=== PATIENT | female | born 1975 | race Caucasian/White ===

== ENCOUNTER 2016-09-21 05:58 | Outpatient (CLI) | payer OTHER | END 2016-09-21 05:59 | disposition critical access hospital (66) | DX: M79.605 Pain in left leg (principal) | CPT/HCPCS: A0425; A0427 ==

== ENCOUNTER 2016-09-21 06:23 | Emergency (ER) | payer OTHER ==
[2016-09-21] MEDS ORDERED: CYCLOBENZAPRINE 10 MG TABLET PO STA (06:55)
[2016-09-21] MEDS ORDERED: CYCLOBENZAPRINE 10 MG TABLET PO ONE (07:09)
[2016-09-21] MEDS ORDERED: SODIUM CHLORIDE 0.9% 1,000 ML IV ONE (07:20)
[2016-09-21] MEDS ORDERED: DEXAMETHASONE 10 MG/ML VIAL IVP STA (07:20)
[2016-09-21] MEDS ORDERED: KETOROLAC 60 MG/2 ML VIAL IVP STA (07:20)
[2016-09-21] MEDS ORDERED: DEXAMETHASONE 10 MG/ML VIAL ONE (07:21)
[2016-09-21] MEDS ORDERED: KETOROLAC 30 MG/ML VIAL ONE (07:21)
== END 2016-09-21 10:29 | disposition home or self-care (01) ==
DX: E86.0 Dehydration (principal); M54.32 Sciatica, left side; E03.9 Hypothyroidism, unspecified; Z79.891 Long term (current) use of opiate analgesic; Z79.899 Other long term (current) drug therapy
CPT/HCPCS: 81003; 81025; 96361; 96374; 96375; 99284; A9270

== ENCOUNTER 2021-01-04 08:00 | Outpatient (CLI) | payer OTHER | END 2021-01-04 23:59 | disposition home or self-care (01) | LOC: LAB.N 08:00 | PROVIDERS: ATTEND Nurse Practitioner | DX: R07.0 Pain in throat (principal); Z20.822 Contact with and (suspected) exposure to COVID-19 | CPT/HCPCS: 87070 ==

== ENCOUNTER 2021-09-03 14:55 | Outpatient (CLI) | payer OTHER ==
--- NOTE | 2021-09-03 18:05 | Ultrasound Report ---
PROCEDURE: Head or Neck Soft Tissue INDICATIONS: DIFFICULTY SWALLOWING, HYPOTHYROIDISM TECHNIQUE: Real time scanning was performed of the neck region of interest, with image documentation . COMPARISON: None. FINDINGS: Right: Thyroid lobe measures 3.9 x 1 x 1.4 cm, and is homogenous in echotexture. Left: Thyroid lobe measures 3.3 x 0.7 x 1.1 cm, and is homogenous in echotexture. Isthmus: 0.3 cm Nodule number: 1 Location: Right inferior Size: 3.2 x 2.6 x 3.3 mm Composition: Solid Echogenicity: Hypoechoic Shape: Wider than tall. Margins: Irregular Echogenic foci: None Total points: 4 ACR TI-RADS category: Moderately suspicious; however, does not meet size criteria for follow-up. IMPRESSION: 1. Subcentimeter right thyroid nodule as detailed above. Sum of all points to determine TI-RADS level. ACR TI-RADS definitions and recommendations: TI-RADS 1 (benign): 0 points. FNA not needed. TI-RADS 2 (not suspicious): 2 points. FNA not needed. TI-RADS 3 (mildly suspicious): 3 points. --FNA if 2.5 cm or larger, follow-up if 1.5 cm or larger (at 1, 3, and 5 years). TI-RADS 4 (moderately suspicious): 4-6 points. --FNA if 1.5 cm or larger, follow up if 1 cm or larger (at 1, 2, 3, and 5 years). TI-RADS 5 (highly suspicious): 7 points or more. --FNA if 1 cm or larger, follow-up is 0.5 cm or larger (every year for 5 years). Reviewed by: Maxime Olivier MD on 09/03/2021 6:04 PM PDT Approved by: Maxime Olivier MD on 09/03/2021 6:04 PM PDT Station ID: [id number]
== END 2021-09-03 14:56 | disposition home or self-care (01) ==
LOC: DI 14:55
PROVIDERS: ATTEND Registered Nurse
DX: E04.1 Nontoxic single thyroid nodule (principal); R13.10 Dysphagia, unspecified; E03.9 Hypothyroidism, unspecified

== ENCOUNTER 2021-11-04 15:00 | Outpatient (CLI) | payer OTHER | END 2021-11-04 15:01 | disposition home or self-care (01) | LOC: MAC.INF 15:00 | PROVIDERS: ATTEND Physician Assistant | DX: R00.2 Palpitations (principal) | CPT/HCPCS: 93246; 93248 ==

== ENCOUNTER 2021-11-27 10:00 | Outpatient (CLI) | payer OTHER | END 2021-11-27 10:01 | disposition home or self-care (01) | LOC: MAC.MOP 10:00 | PROVIDERS: ATTEND Physician Assistant | DX: I47.1 Supraventricular tachycardia (principal); I47.2 Ventricular tachycardia; I49.1 Atrial premature depolarization; I49.3 Ventricular premature depolarization | CPT/HCPCS: 93248 ==

== ENCOUNTER 2022-01-29 09:22 | Outpatient (CLI) | payer OTHER ==
[2022-01-29 19:08] LABS: BASOPHILS % (AUTO) 0.6 %; EOSINOPHILS # (AUTO) 0.2 10^3/uL (0.0-0.7); EOSINOPHILS % (AUTO) 2.9 %; HCT - HEMATOCRIT 41.5 % (37.0-47.0); HGB - HEMOGLOBIN 13.6 g/dL (12.0-16.0); LYMPHOCYTES # (AUTO) 1.4 10^3/uL (1.5-3.5); LYMPHOCYTES % (AUTO) 27.7 %; MEAN CORPUSCULAR HEMOGLOBIN 30.8 pg (27.0-31.0); MEAN CORPUSCULAR HGB CONC 32.8 g/dL (32.0-36.0); MEAN CORPUSCULAR VOLUME 93.9 fL (81.0-99.0); MEAN PLATELET VOLUME 9.5 fL (7.9-10.8); MONOCYTES # (AUTO) 0.4 10^3/uL (0.0-1.0); NEUTROPHILS # (AUTO) 3.1 10^3/uL (1.5-6.6); NEUTROPHILS % (AUTO) 60.6 %; PLT - PLATELET COUNT 260 10^3/uL (130-450); RED BLOOD COUNT 4.42 10^6/uL (4.20-5.40); RED CELL DISTRIBUTION WIDTH 11.4 % (12.0-15.0); WHITE BLOOD COUNT 5.1 x10^3/uL (4.8-10.8)
[2022-01-29 19:18] LABS: ALBUMIN 4.2 g/dL (3.2-5.5); CALCIUM 9.6 mg/dL (8.5-10.3); CREATININE 0.6 mg/dL (0.4-1.0); POTASSIUM 4.1 mmol/L (3.5-5.0)
[2022-01-29 19:39] LABS: THYROID STIMULATING HORMONE 0.16 uIU/mL (0.34-5.60)
[2022-01-29 19:40] LABS: FREE T4 (FREE THYROXINE) 1.32 ng/dL (0.58-1.64)
[2022-01-29 19:45] LABS: FERRITIN 54.5 ng/mL (11.0-306.8)
[2022-01-29 19:51] LABS: ALBUMIN/GLOBULIN RATIO 1.3 (1.0-2.2); BILIRUBIN,TOTAL 1.4 mg/dL (0.2-1.0); PHOSPHORUS 3.5 mg/dL (2.5-4.6); TOTAL PROTEIN 7.5 g/dL (6.7-8.2)
[2022-02-01 14:08] LABS: VITAMIN D 25-HYDROXY 64.5 ng/mL (30.0-100.0)
== END 2022-01-29 09:23 | disposition home or self-care (01) ==
LOC: LAB.N 09:22
PROVIDERS: ATTEND Physician Assistant
DX: Z98.84 Bariatric surgery status (principal)
CPT/HCPCS: 36415; 80053; 82306; 82607; 82728; 82746; 83540; 83970; 84100; 84207; 84425; 84439; 84443; 84466; 85025

== ENCOUNTER 2023-02-13 07:51 | Outpatient (CLI) | payer OTHER ==
[2023-02-13 12:33] LABS: BASOPHILS % (AUTO) 0.3 %; EOSINOPHILS # (AUTO) 0.1 10^3/uL (0.0-0.7); EOSINOPHILS % (AUTO) 1.6 %; HCT - HEMATOCRIT 40.6 % (37.0-47.0); HGB - HEMOGLOBIN 13.2 g/dL (12.0-16.0); LYMPHOCYTES # (AUTO) 1.6 10^3/uL (1.5-3.5); LYMPHOCYTES % (AUTO) 25.3 %; MEAN CORPUSCULAR HEMOGLOBIN 30.3 pg (27.0-31.0); MEAN CORPUSCULAR HGB CONC 32.5 g/dL (32.0-36.0); MEAN CORPUSCULAR VOLUME 93.3 fL (81.0-99.0); MONOCYTES # (AUTO) 0.5 10^3/uL (0.0-1.0); MONOCYTES % (AUTO) 7.5 %; PLT - PLATELET COUNT 322 10^3/uL (130-450); RED BLOOD COUNT 4.35 10^6/uL (4.20-5.40); RED CELL DISTRIBUTION WIDTH 11.8 % (12.0-15.0); WHITE BLOOD COUNT 6.2 x10^3/uL (4.8-10.8)
[2023-02-13 12:55] LABS: ALBUMIN 4.2 g/dL (3.2-5.5); ALBUMIN/GLOBULIN RATIO 1.3 (1.0-2.2); ALKALINE PHOSPHATASE 78 IU/L (42-121); ALT ALANINE AMINOTRANSFERASE 25 IU/L (10-60); AST ASPARTATE AMINOTRANSFERASE 23 IU/L (10-42); BILIRUBIN,TOTAL 0.7 mg/dL (0.2-1.0); BUN - BLOOD UREA NITROGEN 12 mg/dL (6-20); CALCIUM 9.6 mg/dL (8.5-10.3); CARBON DIOXIDE - CO2 29 mmol/L (21-32); CHLORIDE 106 mmol/L (101-111); CHOL/HDL RATIO 5.1 (<4.4); CHOLESTEROL 202 mg/dL; CREATININE 0.6 mg/dL (0.6-1.3); GFR - MDRD 108 (>89); GLUCOSE 102 mg/dL (74-104); HDL CHOLESTEROL 40 mg/dL; LDL CHOLESTEROL,CALCULATED 126 mg/dL; LDL/HDL RATIO 3.2 (<4.4); POTASSIUM 4.3 mmol/L (3.5-4.5); SODIUM 140 mmol/L (135-145); TOTAL PROTEIN 7.5 g/dL (6.4-8.9); TRIGLYCERIDES 179 mg/dL (48-352); VLDL CHOLESTEROL 36 mg/dL
[2023-02-13 13:04] LABS: THYROID STIMULATING HORMONE 2.24 uIU/mL (0.34-5.60)
== END 2023-02-13 07:52 | disposition home or self-care (01) ==
LOC: LAB.N 07:51
PROVIDERS: ATTEND Physician Assistant
DX: E03.9 Hypothyroidism, unspecified (principal); Z13.220 Encounter for screening for lipoid disorders
CPT/HCPCS: 36415; 80053; 80061; 83721; 84439; 84443; 85025

== ENCOUNTER 2023-05-01 08:00 | Outpatient (CLI) | payer OTHER ==
--- NOTE | 2023-05-01 17:02 | XRAY Report ---
PROCEDURE: Ankle 3 View RT INDICATIONS: RIGHT ANKLE PAIN TECHNIQUE: 3 views of the ankle were acquired. COMPARISON: None. FINDINGS: Bones: No fractures or dislocations. Ankle mortise is normally aligned and intact. No suspicious b adriana lesions. Plantar and retrocalcaneal enthesophytes. Soft tissues: No tibiotalar joint effusion. Achilles tendon appears normal. IMPRESSION: No acute bony abnormality. Plantar and retrocalcaneal enthesophytes. Reviewed by: Altagracia Alicia MD on 05/01/2023 5:01 PM PST Approved by: Altagracia Alicia MD on 05/01/2023 5:01 PM PST Station ID: [id number]
== END 2023-05-01 23:59 | disposition home or self-care (01) ==
LOC: DI.WOS 08:00
PROVIDERS: ATTEND Physician Assistant Surgical
DX: M77.51 Other enthesopathy of right foot and ankle (principal)

== ENCOUNTER 2023-08-28 08:51 | Day surgery (SDC) | payer OTHER ==
[2023-08-28] MEDS: LACTATED RINGERS 1,000 ML IV ONE ×2 (08:55→11:11)
--- NOTE | 2023-08-28 10:28 | ANESTHESIA ---
Pre-Anesthesia VS, & Labs - Diagnosis SCREENING - Procedure COLONOSCOPY Height: 5 ft 3 in Weight (kg): 103.5 kg Body Mass Index: 40.4 BMI Classification: Morbidly Obese - NPO Last Fluid Intake: 0600 SIP H20 Last Food Intake: >8HR - Is Patient ?: No (HAD A TUBAL 10 YEARS AGO, NOT ACTIVE, BELIEVES POST MENOPAUSAL) Home Medications and Allergies Home Medications: Ambulatory Orders Loratadine [Claritin] 10 mg PO DAILY 08/25/23 Levothyroxine [Synthroid] 112 mcg PO DAILY 09/21/16 Loratadine [Claritin] 10 mg PO DAILY 08/25/23 Allergies/Adverse Reactions: Allergies Allergy/AdvReac Type Severity Reaction Status Date / Time cat dander AdvReac Respiratory Verified 08/25/23 14:17 pollen extracts AdvReac Respiratory Verified 08/25/23 14:16 Anes History & Medical History - Anesthetic History Anesthesia Complications: reports: Post-Operative Nausea/Vomiting Family history of Anesthesia Complications: Denies - Medical History Cardiovascular: reports: None Pulmonary: reports: None Gastrointestinal: reports: None Urinary: reports: None Musculoskeletal: reports: Chronic back pain Endocrine/Autoimmune: reports: HyPOthyroidism Skin: reports: None Smoking Status: Never smoker Psychosocial: reports: No issues indicated - Surgical History General: reports: Gastric surgery Gynecologic: reports: section Results - EKG Results EKG Comparison: Reviewed EKG Exam General: Alert Mouth Openin Fingerbreadth Neck Mobility: Normal Mallampati classification: II Thyromental Distance: 4-6 cm Plan Anesthesia Type: IV Regional Consent for Procedure(s) Verified and Reviewed: Yes Code Status: Attempt Resuscitation ASA classification: 2-Mild systemic disease Is this case an emergency?: No
[2023-08-28 11:35] VITALS: O2SAT 100
[2023-08-28 11:46] VITALS: BP 110/72
--- NOTE | 2023-08-28 11:46 | ANESTHESIA POST OP EVALUATION ---
Anesthesia Post Eval - Post Anesthesia Eval Vitals: Last Vital Signs Temp 36.4 C L 08/28/23 11:11 Pulse 70 08/28/23 11:41 Resp 18 08/28/23 11:41 BP 110/72 08/28/23 11:41 Pulse Ox 100 08/28/23 11:41 O2 Flow Rate CV Function Including HR & BP: Stable Pain Control: Satisfactory Nausea & Vomiting: Negative Mental Status: Baseline Respiratory Status: Airway Patent Hydration Status: Satisfactory Anesthesia Complications: None
== END 2023-08-28 08:52 | disposition home or self-care (01) ==
LOC: SDS 08:51
PROVIDERS: ATTEND Surgery
DX: Z12.11 Encounter for screening for malignant neoplasm of colon (principal); K64.8 Other hemorrhoids; E66.01 Morbid (severe) obesity due to excess calories; Z68.41 Body mass index [BMI] 40.0-44.9, adult; Z80.0 Family history of malignant neoplasm of digestive organs
CPT/HCPCS: 45378; J7120

== ENCOUNTER 2023-10-26 13:15 | Emergency (ER) | payer OTHER ==
--- NOTE | 2023-10-26 13:29 | ED Physician Documentation ---
PD HPI ABD PAIN - Stated complaint Stated Complaint: ABD PX,BACK PX - Chief complaint Chief Complaint: Abd Pain - History obtained from History obtained from: Patient - Additional information Additional information: 48-year-old female presents with nausea and vomiting as well as upper abdominal pain that radiates into the back. Symptoms have been present for about 3 days. She has not had a fever to her knowledge, denies any diarrhea or constipation, no urinary symptoms. No one else in the household is sick. She denies any new foods or water sources, no international travel, and does not smoke marijuana. She has had some similar symptoms in the past, but typically they go away on their own. She states she does not seem to associate pain with p.o. intake. She does have a history of a gastric sleeve. Review of Systems Constitutional: reports: Reviewed and negative Eyes: reports: Reviewed and negative Ears: reports: Reviewed and negative Nose: reports: Reviewed and negative Throat: reports: Reviewed and negative Cardiac: reports: Reviewed and negative Respiratory: reports: Reviewed and negative GI: reports: Abdominal Pain, Nausea, Vomiting. denies: Constipation, Diarrhea : reports: Reviewed and negative Skin: reports: Reviewed and negative Musculoskeletal: reports: Reviewed and negative PD PAST MEDICAL HISTORY - Past Medical History Past Medical History: No Cardiovascular: None Respiratory: None Endocrine/Autoimmune: HyPOthyroidism GI: None : None HEENT: None Psych: None Musculoskeletal: Chronic back pain Derm: None - Past Surgical History Past Surgical History: Yes General: Gastric surgery /TRANSPORTATION DISPATCHER: section - Present Medications Home Medications: Ambulatory Orders Medication Instructions Recorded Confirmed Levothyroxine [Synthroid] 112 mcg PO DAILY 09/21/16 10/26/23 Loratadine [Claritin] 10 mg PO DAILY 08/25/23 08/28/23 Dicyclomine [Bentyl] 20 mg PO QID #30 cap 10/26/23 Ondansetron Odt [Zofran] 4 mg TL Q6H PRN #10 tablet 10/26/23 - Allergies Allergies/Adverse Reactions: Allergies Allergy/AdvReac Type Severity Reaction Status Date / Time cat dander AdvReac Respiratory Verified 10/26/23 13:22 pollen extracts AdvReac Respiratory Verified 10/26/23 13:22 - Social History Does the pt smoke?: No Smoking Status: Never smoker Does the pt drink ETOH?: Yes Does the pt have substance abuse?: No - Immunizations Immunizations are current?: Yes PD ED PE NORMAL - Vitals Vital signs reviewed: Yes - General General: Alert and oriented X 3, No acute distress, Well developed/nourished - HEENT HEENT: Atraumatic, Moist mucous membranes - Cardiac Cardiac: RRR, No murmur - Respiratory Respiratory: No respiratory distress, Clear bilaterally - Abdomen Abdomen: Normal bowel sounds, Soft, Non distended, No organomegaly, Other (mid epigastric and RUQ ttp) - Back Back: No CVA TTP, No spinal TTP - Derm Derm: Normal color, Warm and dry, No rash - Neuro Neuro: Alert and oriented X 3 Eye Opening: Spontaneous Motor: Obeys Commands Verbal: Oriented GCS Score: 15 Results - Vitals Vitals: Vital Signs - 24 hr 10/26/23 10/26/23 10/26/23 13:17 15:22 16:49 Temperature 36.4 C L Heart Rate 93 65 75 Respiratory 18 16 16 Rate Blood Pressure 131/81 H 125/78 O2 Saturation 99 100 98 Oxygen O2 Source Room air - Labs Labs: Laboratory Tests 10/26/23 10/26/23 10/26/23 13:15 13:34 13:34 WBC 16.1 H RBC 4.56 Hgb 13.9 Hct 41.8 MCV 91.7 MCH 30.5 MCHC 33.3 RDW 11.9 L Plt Count 291 MPV 8.5 Neut # (Auto) 13.7 H Lymph # (Auto) 1.2 L [place] # (Auto) 1.2 H Eos # (Auto) 0.0 Baso # (Auto) 0.0 Absolute Nucleated RBC 0.00 Nucleated RBC % 0.0 Sodium 135 Potassium 3.4 L Chloride 98 L Carbon Dioxide 27 Anion Gap 10.0 BUN 8 Creatinine 0.6 Estimated GFR (MDRD) 108 Glucose 110 H Calcium 9.7 Total Bilirubin 2.5 H AST 23 ALT 28 Alkaline Phosphatase 77 Total Protein 7.7 Albumin 4.5 Globulin 3.2 Albumin/Globulin Ratio 1.4 Lipase < 10 L Urine Color DARK YELLOW Urine Clarity HAZY Urine pH 7.0 Ur Specific [place] 1.020 Urine Protein TRACE Urine Glucose (UA) NEGATIVE Urine Ketones 40 H Urine Occult Blood MODERATE H Urine Nitrite NEGATIVE Urine Bilirubin SMALL H Urine Urobilinogen >=8.0 H Ur Leukocyte Esterase NEGATIVE Urine RBC 0-5 Urine WBC 0-3 Ur Squamous Epith Cells MANY Squamous H Urine Bacteria Many H Urine Mucus Marked Strands Ur Microscopic Review INDICATED Urine Culture Comments NOT INDICATED - Rads (name of study) No standard instances Relevant Findings:: Final report received PD Medical Decision Making - ED course Complexity details: reviewed results, re-evaluated patient, considered differential, d/w patient, d/w marketing sales consultant ED course: 48-year-old female presented with right upper quadrant abdominal pain, nausea and vomiting as described in HPI. The patient is well-appearing here on phy sical exam, nontoxic afebrile, does have mild right upper quadrant tenderness on physical exam. The concern for biliary colic or cholecystitis versus gastritis gastroenteritis, cyclic vomiting, IBS among other differentials. We obtained lab work which shows notable for a white blood cell count of 16,000, otherwise fairly stable, she does not have a urinary tract infection. We proceeded initially with the ultrasound which showed a normal gallbladder, no gallstones therefore obtain a CT abdomen pelvis to evaluate for Other potential causes. There is very slight possible fat stranding has noted above but no obvious signs of acute cholecystitis. She does not have any gallstones, and the common bile duct is within normal. I reviewed these findings with the on-call general surgeon and it was felt this likely was more of a IBS and recommended Bentyl and we will discharge as well with nausea medication. Patient advised that if she had persistent symptoms or if they seem to be more exacerbated by p.o. intake to follow-up here or with general surgery.She was encouraged to stick to a clear liquid diet tonight and then she can advance slowly as tolerated but stick with a fairly bland and easily digestible foods for the next several days. Patient feeling substantially better after IV fluids and medications here and stable for discharge home. Departure - Departure Disposition: 01 Home, Self Care Clinical Impression: Gastroenteritis Condition: Good Instructions: ED Gastroenteritis Non Infec Follow-Up: Kandace Guy MD [Provider Admit Priv/Credential] - Prescriptions: Dicyclomine [Bentyl] 20 mg PO QID #30 cap Ondansetron Odt [Zofran] 4 mg TL Q6H PRN #10 tablet PRN Reason: Nausea / Vomiting Comments: Your symptoms are likely due to a gastroenteritis or possibly some mild underlying irritable bowel syndrome. Your gallbladder appears normal on the CT and ultrasound. If you have recurrent symptoms however consider following up with the GI specialist or general surgery.If you develop a fever and worsening symptoms, please return to the ER. I recommend that you stick with a clear liquid diet today and then advance slowly to easily digestible foods, avoid any high-fat foods. Forms: PCP List Discharge Date/Time: 10/26/23 16:49
[2023-10-26 13:43] LABS: BASOPHILS % (AUTO) 0.2 %; EOSINOPHILS % (AUTO) 0.1 %; HCT - HEMATOCRIT 41.8 % (37.0-47.0); HGB - HEMOGLOBIN 13.9 g/dL (12.0-16.0); LYMPHOCYTES # (AUTO) 1.2 10^3/uL (1.5-3.5); LYMPHOCYTES % (AUTO) 7.2 %; MEAN CORPUSCULAR HEMOGLOBIN 30.5 pg (27.0-31.0); MEAN CORPUSCULAR HGB CONC 33.3 g/dL (32.0-36.0); MEAN CORPUSCULAR VOLUME 91.7 fL (81.0-99.0); MEAN PLATELET VOLUME 8.5 fL (7.9-10.8); MONOCYTES # (AUTO) 1.2 10^3/uL (0.0-1.0); MONOCYTES % (AUTO) 7.1 %; NEUTROPHILS # (AUTO) 13.7 10^3/uL (1.5-6.6); PLT - PLATELET COUNT 291 10^3/uL (130-450); RED BLOOD COUNT 4.56 10^6/uL (4.20-5.40); RED CELL DISTRIBUTION WIDTH 11.9 % (12.0-15.0); WHITE BLOOD COUNT 16.1 x10^3/uL (4.8-10.8)
[2023-10-26 13:45] LABS: BILIRUBIN,URINE SMALL (NEGATIVE); GLUCOSE, URINE (UA) NEGATIVE (NEGATIVE); KETONES,URINE (UA) 40 mg/dL (NEGATIVE); LEUKOCYTE ESTERASE, URINE NEGATIVE (NEGATIVE); NITRITE,URINE NEGATIVE (NEGATIVE); OCCULT BLOOD,URINE MODERATE (NEGATIVE); PROTEIN,URINE TRACE mg/dL (NEGATIVE); UROBILINOGEN,URINE >=8.0 E.U./dL (NORMAL)
[2023-10-26] MEDS: ONDANSETRON 4 MG/2 ML VIAL IVP STA (13:47)
[2023-10-26] MEDS: KETOROLAC 30 MG/ML VIAL IVP STA (13:47)
[2023-10-26 13:59] LABS: BACTERIA,URINE Many /HPF (None Seen); CLARITY,URINE HAZY (CLEAR); RBC,URINE 0-5 /HPF (0-5); SQUAMOUS EPITHELIAL CELL,UR MANY Squamous (<= Few); WBC,URINE 0-3 /HPF (0-5)
[2023-10-26 14:00] LABS: MUCUS,URINE Marked Strands
[2023-10-26 14:04] LABS: ALBUMIN 4.5 g/dL (3.2-5.5); ALBUMIN/GLOBULIN RATIO 1.4 (1.0-2.2); ALKALINE PHOSPHATASE 77 IU/L (42-121); ALT ALANINE AMINOTRANSFERASE 28 IU/L (10-60); AST ASPARTATE AMINOTRANSFERASE 23 IU/L (10-42); BILIRUBIN,TOTAL 2.5 mg/dL (0.2-1.0); BUN - BLOOD UREA NITROGEN 8 mg/dL (6-20); CALCIUM 9.7 mg/dL (8.5-10.3); CARBON DIOXIDE - CO2 27 mmol/L (21-32); CHLORIDE 98 mmol/L (101-111); CREATININE 0.6 mg/dL (0.6-1.3); GFR - MDRD 108 (>89); GLUCOSE 110 mg/dL (74-104); POTASSIUM 3.4 mmol/L (3.5-4.5); SODIUM 135 mmol/L (135-145); TOTAL PROTEIN 7.7 g/dL (6.4-8.9)
[2023-10-26 14:08] LABS: LIPASE < 10 U/L (11-82)
[2023-10-26] MEDS ORDERED: iohexoL-300 100 ML VIAL ONE (14:55)
--- NOTE | 2023-10-26 15:12 | Ultrasound Report ---
PROCEDURE: Abdomen Limited INDICATIONS: RUQ pain, eval gallbladder please TECHNIQUE: Real-time focused scanning was performed of the abdomen, with image documentation. COMPARISONS: None. FINDINGS: Liver: Liver measures 16.9 cm with steatosis. Gallbladder: No gallstones, sludge, wall thickening or pericholecystic edema. Biliary ducts: Intrahepatic bile ducts are non-dilated. Extrahepatic bile duct caliber measures 4.3 mm. Normal is 6-7 mm or less in diameter, or 10 mm or less post-cholecystectomy. Pancreas: Visualized portions of the pancreas are sonographically normal. Right kidney: Normal in size and echotexture. Right kidney measures 12.0 cm long. No hydronephrosis or nephrolithiasis. No solid masses. No complex renal cystic lesions which require follow-up. IVC: Intrahepatic inferior vena cava is patent. Miscellaneous: No free abdominal fluid. IMPRESSION: Unremarkable abdominal ultrasound. Reviewed by: Shell Appiah MD on 10/26/2023 3:10 PM PDT Approved by: Shell Appiah MD on 10/26/2023 3:10 PM PDT Station ID: [id number]
[2023-10-26] MEDS ORDERED: iohexoL-300 100 ML VIAL IVP ONE (15:24)
--- NOTE | 2023-10-26 15:55 | CT Report ---
PROCEDURE: Abdomen/Pelvis W INDICATIONS: RUQ pain, elevated bili/wbc CONTRAST: Omni 300 100ml TECHNIQUE: After the administration of intravenous contrast, a CT scan of the abdomen and pelvis was performed. Images were recorded and evaluated at appropriate window settings. Reformats: coronal and sagittal. F or radiation dose reduction, the following was used: automated exposure control, adjustment of mA and /or kV according to patient size. COMPARISON: Ultrasound abdomen 10/26/2023. FINDINGS: Image quality: Diagnostic. Lower chest: Unremarkable. Liver: No solid mass. Gallbladder: No stones or wall thickening. There is a very slight appearance of pericholecystic stran ding along the inferior aspect of the gallbladder. Biliary tree: No intrahepatic or extrahepatic dilation, accounting for age. Spleen: No splenomegaly. Pancreas: No pancreatic ductal dilation. Adrenals: No adrenal nodule. Kidneys and ureters: No hydronephrosis. No renal cystic lesion which requires follow up. No solid mas s. Stomach, bowel and peritoneum: No gastric or small bowel dilation. No abnormal wall thickening. No pa thologic free fluid. Minimal diverticula without inflammatory change. Lymph nodes: No central or retroperitoneal adenopathy. Vessels: No infrarenal aortic aneurysm. Patent portal vein. PELVIS Reproductive organs: 2.4 cm simple left ovarian cyst. Bladder: No abnormal wall thickening, accounting for underdistention. Pelvic lymph nodes: No pelvic adenopathy by size criteria. Bones: No aggressive osseous abnormality. Other: No significant ventral or inguinal hernia. IMPRESSION: Normal appearance of stranding along the inferior aspect of the gallbladder wall. No focal thickening is identified. No stones. This could represent a very early developing cholecystitis. Adjacent ascen ding colon bowel loops demonstrate no surrounding inflammatory change. Reviewed by: Shell Appiah MD on 10/26/2023 3:54 PM PDT Approved by: Shell Appiah MD on 10/26/2023 3:54 PM PDT Station ID: [id number]
[2023-10-26 16:15] VITALS: BP 125/78
[2023-10-26 16:53] VITALS: O2SAT 98
== END 2023-10-26 16:49 | disposition home or self-care (01) ==
LOC: ED 13:15
DX: K52.9 Noninfective gastroenteritis and colitis, unspecified (principal); E03.9 Hypothyroidism, unspecified; Z79.899 Other long term (current) drug therapy
CPT/HCPCS: 36415; 80053; 81001; 81003; 83690; 85025; 87086; 96374; 99284

== ENCOUNTER 2023-11-04 08:09 | Emergency (ER) | payer OTHER ==
[2023-11-04 08:36] LABS: BILIRUBIN,URINE SMALL (NEGATIVE); GLUCOSE, URINE (UA) NEGATIVE (NEGATIVE); KETONES,URINE (UA) NEGATIVE (NEGATIVE); LEUKOCYTE ESTERASE, URINE NEGATIVE (NEGATIVE); NITRITE,URINE NEGATIVE (NEGATIVE); OCCULT BLOOD,URINE NEGATIVE (NEGATIVE); PROTEIN,URINE NEGATIVE (NEGATIVE); UROBILINOGEN,URINE >=8.0 E.U./dL (NORMAL)
[2023-11-04 08:38] LABS: CLARITY,URINE CLEAR (CLEAR); HCG UR QUAL NEGATIVE
[2023-11-04 09:13] LABS: BASOPHILS # (AUTO) 0.1 10^3/uL (0.0-0.1); BASOPHILS % (AUTO) 1.3 %; EOSINOPHILS # (AUTO) 0.1 10^3/uL (0.0-0.7); EOSINOPHILS % (AUTO) 2.3 %; HCT - HEMATOCRIT 38.8 % (37.0-47.0); HGB - HEMOGLOBIN 12.5 g/dL (12.0-16.0); LYMPHOCYTES # (AUTO) 0.9 10^3/uL (1.5-3.5); LYMPHOCYTES % (AUTO) 15.9 %; MEAN CORPUSCULAR HEMOGLOBIN 30.4 pg (27.0-31.0); MEAN CORPUSCULAR HGB CONC 32.2 g/dL (32.0-36.0); MEAN CORPUSCULAR VOLUME 94.4 fL (81.0-99.0); MEAN PLATELET VOLUME 8.3 fL (7.9-10.8); MONOCYTES # (AUTO) 0.4 10^3/uL (0.0-1.0); MONOCYTES % (AUTO) 7.8 %; NEUTROPHILS % (AUTO) 72.3 %; PLT - PLATELET COUNT 437 10^3/uL (130-450); RED BLOOD COUNT 4.11 10^6/uL (4.20-5.40); RED CELL DISTRIBUTION WIDTH 11.5 % (12.0-15.0); WHITE BLOOD COUNT 5.5 x10^3/uL (4.8-10.8)
[2023-11-04 09:32] LABS: ALBUMIN 3.8 g/dL (3.2-5.5); ALBUMIN/GLOBULIN RATIO 1.4 (1.0-2.2); CALCIUM 10.1 mg/dL (8.5-10.3); CREATININE 0.7 mg/dL (0.6-1.3); TOTAL PROTEIN 6.6 g/dL (6.4-8.9)
[2023-11-04] MEDS: KETOROLAC 30 MG/ML VIAL IVP STA (10:55)
[2023-11-04] MEDS: ONDANSETRON 4 MG/2 ML VIAL IVP STA (10:56)
[2023-11-04] MEDS: SODIUM CHLORIDE 0.9% 1,000 ML IV STA (10:56)
--- NOTE | 2023-11-04 11:24 | Ultrasound Report ---
PROCEDURE: Abdomen Limited INDICATIONS: RUQ pain transaminitis normal bili TECHNIQUE: Real-time focused scanning was performed of the abdomen, with image documentation. COMPARISONS: 10/26/2023. Correlation is also made with CT, 10/26/2023. FINDINGS: Liver: Liver is normal in size and heterogeneous in echotexture. Gallbladder: The gallbladder appears distended, measuring 11.6 x 4.4 x 4.2 cm. Dependently layering s ludge can be seen. No definite shadowing gallstones are seen. The gallbladder wall is thickened at 6 mm. There is a potential trace amount of pericholecystic fluid. The patient is tender during the exam ination. Biliary ducts: Intrahepatic bile ducts are non-dilated. Extrahepatic bile duct caliber measures 6 m m. Normal is 6-7 mm or less in diameter, or 10 mm or less post-cholecystectomy. Pancreas: The pancreas is not well seen. IVC: Intrahepatic inferior vena cava is patent. Miscellaneous: No free abdominal fluid. IMPRESSION: Moderate suspicion for cholecystitis, with layering sludge, a thickened gallbladder wall, and potenti al minimal pericholecystic fluid. Tenderness is elicited during the examination. The gallbladder is e nlarged. No biliary dilatation. Note: Concordant preliminary findings given by the tacker elastic band upon the completion of the examination to Dr. Andino at 10:45 AM on 11/04/2023. Reviewed by: Perez Knowles MD on 11/04/2023 10:22 AM HALLE Approved by: Perez Knowles MD on 11/04/2023 10:22 AM HALLE Station ID: [id number]
--- NOTE | 2023-11-04 12:23 | ED Physician Documentation ---
PD HPI ABD PAIN - Stated complaint Stated Complaint: BACK PX,NAUSEA - Chief complaint Chief Complaint: Abd Pain - History obtained from History obtained from: Patient - History of Present Illness Timing - onset: Enter time (299), Today Timing - duration: Hours Timing - details: Abrupt onset, Still present Quality: Cramping, Sharp, Pain Location: RUQ Radiation: Right flank Improved by: Laying still Worsened by: Moving, Breathing, Position, Palpation Associated symptoms: Nausea Similar symptoms before: Diagnosis (IBS) Recently seen: Emergency Dept - Additional information Additional information: Dora Valdez is a 48-year-old female who has had a gastric sleeve placed about 3 years ago and she has presented to the emergency department 1 week ago with acute abdominal pain radiating to her back. At that time she had ultrasound and CT scan done which did not provide a specific diagnosis. At that time her bilirubin was 2.5 and her transaminases were all normal. She presents today with an onset of pain at 3 AM as well as nausea and pain radiating to her back. She reports to me that she has been having episodes of pain like this for some time and that she has called the surgeons who put in her gastric sleeve they reported to her that the pains that she was having were not likely due to her surgery done 3 years previously. Review of Systems Constitutional: denies: Fever Eyes: denies: Decreased vision Ears: denies: Ear pain Nose: denies: Congestion Throat: denies: Sore throat Cardiac: denies: Chest pain / pressure, Palpitations Respiratory: denies: Dyspnea, Cough GI: reports: Abdominal Pain, Nausea : denies: Dysuria, Frequency Skin: denies: Rash Musculoskeletal: reports: Back pain. 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 - Present Medications Home Medications: Ambulatory Orders Medication Instructions Recorded Confirmed Levothyroxine [Synthroid] 112 mcg PO DAILY 09/21/16 10/26/23 Loratadine [Claritin] 10 mg PO DAILY 08/25/23 08/28/23 Dicyclomine [Bentyl] 20 mg PO QID #30 cap 10/26/23 Ondansetron Odt [Zofran] 4 mg TL Q6H PRN #10 tablet 10/26/23 - Allergies Allergies/Adverse Reactions: Allergies Allergy/AdvReac Type Severity Reaction Status Date / Time cat dander AdvReac Respiratory Verified 11/04/23 08:18 pollen extracts AdvReac Respiratory Verified 11/04/23 08:18 - Social History Does the pt smoke?: No Smoking Status: Never smoker Does the pt drink ETOH?: Yes Does the pt have substance abuse?: No - Immunizations Immunizations are current?: Yes PD ED PE NORMAL - Vitals Vital signs reviewed: Yes (hypertensive ) - General General: Alert and oriented X 3, Well developed/nourished, Other (Uncomfortable 48-year-old female laying in the position and groaning.) - HEENT HEENT: Atraumatic, PERRL, EOMI - Neck Neck: Supple, no meningeal sign, No bony TTP - Cardiac Cardiac: RRR, No murmur - Respiratory Respiratory: No respiratory distress, Clear bilaterally - Abdomen Abdomen: Normal bowel sounds, Soft, Non distended, Other (There is right upper quadrant and epigastric tenderness to palpation. There is arrest of respiration with deep breathing. There does not appear to be pain to bimanual player palpation of the right kidney. There does not appear to be rib pain.) - Back Back: No CVA TTP, No spinal TTP - Derm Derm: Normal color, Warm and dry, No rash - Extremities Extremities: No deformity, No edema - Neuro Neuro: Alert and oriented X 3, pearl peller 2-12 intact, No motor deficit, No sensory deficit, Normal speech Eye Opening: Spontaneous Motor: Obeys Commands Verbal: Oriented GCS Score: 15 - Psych Psych: Normal mood, Normal affect Results - Vitals Vitals: Vital Signs - 24 hr 11/04/23 11/04/23 11/04/23 08:18 11:03 13:57 Temperature 36.7 C 36.5 C Heart Rate 75 88 64 Respiratory 16 20 18 Rate Blood Pressure 136/85 H 140/88 H 120/67 O2 Saturation 100 99 100 Oxygen O2 Source Room air - Labs Labs: Laboratory Tests 11/04/23 11/04/23 11/04/23 08:20 09:09 09:09 WBC 5.5 RBC 4.11 L Hgb 12.5 Hct 38.8 MCV 94.4 MCH 30.4 MCHC 32.2 RDW 11.5 L Plt Count 437 MPV 8.3 Neut # (Auto) 4.0 Lymph # (Auto) 0.9 L [place] # (Auto) 0.4 Eos # (Auto) 0.1 Baso # (Auto) 0.1 Absolute Nucleated RBC 0.00 Nucleated RBC % 0.0 Sodium 139 Potassium 4.0 Chloride 103 Carbon Dioxide 29 Anion Gap 7.0 BUN 8 Creatinine 0.7 Estimated GFR (MDRD) 90 Glucose 110 H Calcium 10.1 Total Bilirubin 1.0 AST 410 H ALT 228 H Alkaline Phosphatase 195 H Total Protein 6.6 Albumin 3.8 Globulin 2.8 Albumin/Globulin Ratio 1.4 Lipase 16 Urine Color YELLOW Urine Clarity CLEAR Urine pH 7.0 Ur Specific [place] 1.025 Urine Protein NEGATIVE Urine Glucose (UA) NEGATIVE Urine Ketones NEGATIVE Urine Occult Blood NEGATIVE Urine Nitrite NEGATIVE Urine Bilirubin SMALL H Urine Urobilinogen >=8.0 H Ur Leukocyte Esterase NEGATIVE Ur Microscopic Review NOT INDICATED Urine Culture Comments NOT INDICATED Urine HCG, Qual NEGATIVE - Rads (name of study) u/s gallbladder Relevant Findings:: Prelim report reviewed (Impression: Moderate suspicion for cholecystitis, with layering sludge, thickening gallbladder wall, and potential minimal pericholecystic fluid. Tenderness is elicited during the examination. The gallbladder is enlarged. No biliary dilation.), EMP independent interpretation of test PD Medical Decision Making - ED course Complexity details: reviewed old records, reviewed results, re-evaluated patient, considered differential, d/w patient Reviewed Lab Results: We reviewed a complete blood count showing a normal white blood cell count normal hemoglobin hematocrit and platelets chemistries showed normal electrolytes normal kidney function a normal bilirubin and abnormal transa minases with an AST of 410 ALT of 228 and alkaline phosphatase of 195 these are all elevated from her prior normal results 1 week ago. Urinalysis is negative for and there are no signs of infection.I interpreted these laboratory studies to indicate a lack of obstruction with a normal bilirubin and irritation to the liver associated with gallbladder disease. ED course: Dora Valdez is a 48-year-old female who has had a gastric sleeve placed and she is now begun to develop gallbladder symptoms over the past 5 to 6 months. She is having symptoms as often as once per week and today she presents to the emergency department with as bad of pain that she has had and ultrasound today demonstrates a hydropic gallbladder and elevation of her transaminases. She is diagnosed with cholecystitis and the surgeon is consulted. Dr. Hartman comes to the emergency department evaluates the patient and recommends discharge to home to follow-up in the surgery clinic. The patient had resolution of her symptoms with the use of saline and Toradol. Departure - Departure Disposition: , Self Care Clinical Impression: Cholecystitis Condition: Stable Instructions: ED Gallbladder Infec Poss, ED Diet Low Fat Follow-Up: Sravani Huston PA-C [Primary Care Provider] - Gahnshyam Hartman MD [Provider Admit Priv/Credential] - Comments: Dora, today it looks like there is a problem with your gallbladder and this is a common complication of gastric sleeve procedures. There is appear to be significant inflammation to the gallbladder and our surgeon has recommended outpatient management with anticipation of surgical removal of the gallbladder. A follow-up with the surgeon is indicated and in the meantime a diet free of fat is imperative. If you develop the symptoms that do not resolve in a short period of time a follow-up to the emergency department is indicated as well. Forms: PCP List
--- NOTE | 2023-11-04 14:57 | CONSULTATION NOTE ---
Referring Provider Consult Date: 11/04/23 Chief Complaint - Chief Complaint Chief Complaint: abdominal pain since last pm. History of Present Illness - History Obtained From Records Reviewed: yes History obtained from: pt Exam Limitations: none - History of Present Illness HPI Comment/Other: intermittent abdominal pain every 1 to few weeks for nearly 6 months. attack of upper abdominal pain last pm after a tuna fish sandwich. feeling better this afternoon. denies nausea at this time. History - Past Medical History Cardiovascular: reports: None Respiratory: reports: None Endocrine/Autoimmune: reports: HyPOthyroidism GI: reports: None : reports: None HEENT: reports: None Psych: reports: None Musculoskeletal: reports: Chronic back pain Derm: reports: None MRSA Hx?: No - Past Surgical History General: reports: Gastric surgery /CLOTH DRIER: reports: section Meds/Allgy - Home Medications Home Medications: Ambulatory Orders Medication Instructions Recorded Confirmed Levothyroxine [Synthroid] 112 mcg PO DAILY 09/21/16 10/26/23 Loratadine [Claritin] 10 mg PO DAILY 08/25/23 08/28/23 Dicyclomine [Bentyl] 20 mg PO QID #30 cap 10/26/23 Ondansetron Odt [Zofran] 4 mg TL Q6H PRN #10 tablet 10/26/23 - Allergies Allergies/Adverse Reactions: Allergies Allergy/AdvReac Type Severity Reaction Status Date / Time cat dander AdvReac Respiratory Verified 11/04/23 08:18 pollen extracts AdvReac Respiratory Verified 11/04/23 08:18 Review of Systems - Other Findings Other Findings: 10 pt ros as above otherwise unremarkable gastric sleeve 3 years ago Exam - Vital Signs Vital Signs: Vital Signs x48h Temp Pulse Resp BP Pulse Ox 11/04/23 13:57 36.5 C 64 18 120/67 100 11/04/23 11:03 88 20 140/88 H 99 11/04/23 08:18 36.7 C 75 16 136/85 H 100 - Physical Exam General Appearance: positive: No acute distress, Alert Eyes Bilateral: positive: PERRL, EOMI ENT: positive: No signs of dehydration Neck: positive: No JVD, Trachea midline Respiratory: positive: No respiratory distress Cardiovascular: positive: Regular rate & rhythm Abdomen: positive: No distention Neurologic/Psychiatric: positive: Oriented x3 Conclusion and Plan - Lab Results Laboratory Results 11/04/23 09:09: Sodium 139, Potassium 4.0, Chloride 103, Carbon Dioxide 29, Anion Gap 7.0, BUN 8, Creatinine 0.7, Estimated GFR (MDRD) 90, Glucose 110 H, Calcium 10.1, Total Bilirubin 1.0, AST 410 H, ALT 228 H, Alkaline Phosphatase 195 H, Total Protein 6.6, Albumin 3.8, Globulin 2.8, Albumin/Globulin Ratio 1.4, Lipase 16 11/04/23 09:09: WBC 5.5, RBC 4.11 L, Hgb 12.5, Hct 38.8, MCV 94.4, MCH 30.4, MCHC 32.2, RDW 11.5 L, Plt Count 437, MPV 8.3, Neut # (Auto) 4.0, Lymph # (Auto) 0.9 L, [place] # (Auto) 0.4, Eos # (Auto) 0.1, Baso # (Auto) 0.1, Absolute Nuc leated RBC 0.00, Nucleated RBC % 0.0 11/04/23 08:20: Urine Color YELLOW, Urine Clarity CLEAR, Urine pH 7.0, Ur Specific [place] 1.025, Urine Protein NEGATIVE, Urine Glucose (UA) NEGATIVE, Urine Ketones NEGATIVE, Urine Occult Blood NEGATIVE, Urine Nitrite NEGATIVE, Urine Bilirubin SMALL H, Urine Urobilinogen >=8.0 H, Ur Leukocyte Esterase NEGATIVE, Ur Microscopic Review NOT INDICATED, Urine Culture Comments NOT INDICATED, Urine HCG, Qual NEGATIVE - Diagnostic Imaging Results Diagnostic Imaging Results: positive: Read independently (small stones and sludge. distended gallbladder) - Diagnosis Diagnosis: choledocholithasis and chronic cholectysitiis. - Consultation Note Consultation Note: she is feeling much improved. her stones are small and should pass. she is a teacher. 2 weeks until school is out. she has a 12 and 13 year old child. her mother is in good health and lives on [address]. if she can tolerate clears and has minimal pain she may go home on a low fat diet and follow up in the surgery office [phone] plan follow up surgery office, repeat lfts and if improved lap annelise after school is out in 2 weeks. if lfts continue to be elevated plan mrcp and if cbd stone plan gi referral for ercp prior to lap annelise. I will have the office call her to make an appt.
[2023-11-04 15:46] VITALS: BP 131/84; O2SAT 99
== END 2023-11-04 15:39 | disposition home or self-care (01) ==
LOC: ED 08:09
DX: K80.44 Calculus of bile duct with chronic cholecystitis without obstruction (principal); E03.9 Hypothyroidism, unspecified; Z79.899 Other long term (current) drug therapy
CPT/HCPCS: 36415; 80053; 81001; 81003; 81025; 83690; 85025; 87086; 96374; 96375; 99284

== ENCOUNTER 2024-02-12 08:03 | Outpatient (CLI) | payer OTHER ==
[2024-02-12 12:42] LABS: BASOPHILS % (AUTO) 0.6 %; EOSINOPHILS # (AUTO) 0.2 10^3/uL (0.0-0.7); EOSINOPHILS % (AUTO) 2.8 %; HCT - HEMATOCRIT 41.3 % (37.0-47.0); HGB - HEMOGLOBIN 13.2 g/dL (12.0-16.0); LYMPHOCYTES # (AUTO) 1.6 10^3/uL (1.5-3.5); LYMPHOCYTES % (AUTO) 29.8 %; MEAN CORPUSCULAR HEMOGLOBIN 30.1 pg (27.0-31.0); MEAN CORPUSCULAR VOLUME 94.1 fL (81.0-99.0); MEAN PLATELET VOLUME 9.4 fL (7.9-10.8); MONOCYTES # (AUTO) 0.5 10^3/uL (0.0-1.0); MONOCYTES % (AUTO) 8.7 %; NEUTROPHILS # (AUTO) 3.2 10^3/uL (1.5-6.6); NEUTROPHILS % (AUTO) 57.9 %; PLT - PLATELET COUNT 280 10^3/uL (130-450); RED BLOOD COUNT 4.39 10^6/uL (4.20-5.40); RED CELL DISTRIBUTION WIDTH 11.9 % (12.0-15.0); WHITE BLOOD COUNT 5.4 x10^3/uL (4.8-10.8)
[2024-02-12 12:50] LABS: ALBUMIN 4.4 g/dL (3.2-5.5); ALBUMIN/GLOBULIN RATIO 1.6 (1.0-2.2); ALKALINE PHOSPHATASE 75 IU/L (42-121); ALT ALANINE AMINOTRANSFERASE 20 IU/L (10-60); AST ASPARTATE AMINOTRANSFERASE 21 IU/L (10-42); BILIRUBIN,TOTAL 0.9 mg/dL (0.2-1.0); BUN - BLOOD UREA NITROGEN 13 mg/dL (6-20); CALCIUM 9.8 mg/dL (8.5-10.3); CARBON DIOXIDE - CO2 28 mmol/L (21-32); CHLORIDE 106 mmol/L (101-111); CHOL/HDL RATIO 4.1 (<4.4); CHOLESTEROL 199 mg/dL; CREATININE 0.7 mg/dL (0.6-1.3); GFR - MDRD 90 (>89); GLUCOSE 88 mg/dL (74-104); HDL CHOLESTEROL 49 mg/dL; LDL CHOLESTEROL,CALCULATED 124 mg/dL; LDL/HDL RATIO 2.5 (<4.4); POTASSIUM 3.9 mmol/L (3.5-4.5); SODIUM 139 mmol/L (135-145); TOTAL PROTEIN 7.1 g/dL (6.4-8.9); TRIGLYCERIDES 131 mg/dL; VLDL CHOLESTEROL 26 mg/dL
[2024-02-12 13:07] LABS: THYROID STIMULATING HORMONE 2.15 uIU/mL (0.34-5.60)
== END 2024-02-12 08:04 | disposition home or self-care (01) ==
LOC: LAB.N 08:03
PROVIDERS: ATTEND Physician Assistant
DX: E03.9 Hypothyroidism, unspecified (principal); Z13.220 Encounter for screening for lipoid disorders
CPT/HCPCS: 36415; 80053; 80061; 83721; 84439; 84443; 85025